=== PATIENT | female | born 1930 | race Caucasian/White ===

== ENCOUNTER 2018-03-25 11:50 | Emergency (ER) | payer MEDICARE, BC ==
[~2018-03-25] VITALS: Ht 157.5 cm; Wt 58.9 kg
[~2018-03-25 11:50] MED LIST: ALPR-149 PO; ASPI-1053 PO; CARV3.122 PO; CITA-311 PO; FURO-150 PO; LEVO75TA7 PO; LOSA25TA96 PO; NITR0.4T48 SL; PANT-47 PO; ROSU10TA PO; TICA90TA PO
[2018-03-25 12:27] LABS: CLARITY,URINE CLOUDY (Clear); COLOR,URINE YELLOW (Yellow); GLUCOSE, URINE NEGATIVE (Neg); KETONES,URINE NEGATIVE (Neg); LEUKOCYTE ESTERASE ,URINE SMALL (Neg); NITRITES, URINE NEGATIVE (Neg); OCCULT BLOOD,URINE LARGE (Neg); PROTEIN,URINE 100 mg/dl (Neg)
[2018-03-25 12:29] LABS: UA COLLECTION TYPE CLN CATCH MIDSTREAM
[2018-03-25 12:36] LABS: BACTERIA,URINE 4+ /HPF (Neg); MUCUS STRANDS NONE SEEN /LPF (Neg); SQUAMOUS EPITHELIAL CELL,UR FEW /LPF (FEW); TRANSITIONAL EPI CELLS,URINE FEW /HPF
[2018-03-25 12:37] LABS: AMORPHOUS URATES 1+
[2018-03-25] MEDS ORDERED: acetaminophen w/codeine (30MG) #3 tablet PO ONE (12:40)
[2018-03-25] MEDS ORDERED: CYCL-1 PO (13:20)
[2018-03-25] MEDS ORDERED: nitrofuran/nitrofuran macrocrysal 100 MG capsule PO ONE (13:20)
[2018-03-25] MEDS ORDERED: NITR100C6 PO (13:20)
[2018-03-25 13:46] VITALS: BP 119/54
== END 2018-03-25 13:47 | disposition home or self-care (01) ==
LOC: ER 11:50
DX: N39.0 Urinary tract infection, site not specified (principal); M54.2 Cervicalgia; R51 Headache; I50.9 Heart failure, unspecified; E78.00 Pure hypercholesterolemia, unspecified; Z88.1 Allergy status to other antibiotic agents; Z79.82 Long term (current) use of aspirin
CPT/HCPCS: 72040; 81001; 87077; 87088; 87186; 99285

== ENCOUNTER 2018-03-26 19:55 | Inpatient (IN) | payer MEDICARE, BC ==
[~2018-03-26] VITALS: Ht 157.5 cm; Wt 54.5 kg
[~2018-03-26 19:55] MED LIST changes: +CYCL-1 PO; +NITR100C6 PO
[2018-03-26 20:28] LABS: BASOPHILS % (AUTO) 0.1 % (0-1); EOSINOPHILS # (AUTO) 0.2 X10'3 (0-0.9); EOSINOPHILS % (AUTO) 1.2 % (0-6); HEMATOCRIT 28.1 % (35.0-45.0); HEMOGLOBIN 9.6 g/dl (12.0-16.0); LYMPHOCYTES # (AUTO) 0.3 X10'3 (1.1-4.8); LYMPHOCYTES % (AUTO) 1.7 % (21-51); MEAN CORPUSCULAR HEMOGLOBIN 29.8 PG (27.0-31.0); MEAN CORPUSCULAR HGB CONC 34.3 % (33.0-36.5); MEAN CORPUSCULAR VOLUME 86.8 FL (78-98); MEAN PLATELET VOLUME 6.8 FL (7.4-10.4); MONOCYTES # (AUTO) 0.8 X10'3 (0-0.9); MONOCYTES % (AUTO) 4.9 % (2-12); NEUTROPHILS # (AUTO) 14.9 X10'3 (1.8-7.7); NEUTROPHILS % (AUTO) 92.1 % (42-75); PLATELET COUNT 255 X10'3 (140-440); RED BLOOD COUNT 3.23 X10'6 (4.20-5.60); RED CELL DISTRIBUTION WIDTH 14.9 % (11.5-14.5); WHITE BLOOD COUNT 16.2 X10'3 (4.5-11.0)
[2018-03-26 20:40] LABS: PARTIAL THROMBOPLASTIN TIME 35 SECONDS (22-32); PROTHROMBIN TIME 10.7 SECONDS (9.0-12.0)
[2018-03-26 20:43] LABS: ALANINE AMINOTRANSFERASE 92 U/L (12-78); ALBUMIN 2.3 G/DL (3.4-5.0); ALBUMIN/GLOBULIN RATIO 0.5 (1.1-1.5); ALKALINE PHOSPHATASE 165 IU/L (46-116); ANION GAP 6 (8-16); ASPARTATE AMINO TRANSFERASE 146 U/L (10-37); BILIRUBIN,TOTAL 0.3 MG/DL (0.1-1.0); BLOOD UREA NITROGEN 19 MG/DL (7-18); BUN/CREATININE RATIO 20.2 (6.6-38.0); CALCIUM 8.6 MG/DL (8.5-10.1); CHLORIDE 90 MMOL/L (99-107); CREATININE 0.94 MG/DL (0.40-0.90); GLUCOSE 142 MG/DL (70-104); POTASSIUM 4.5 MMOL/L (3.5-5.1); SODIUM 121 MMOL/L (135-145); TOTAL CARBON DIOXIDE 25.2 MMOL/L (24-32); TOTAL PROTEIN 6.7 G/DL (6.4-8.2); eGFR 56 ML/MIN
[2018-03-26 21:10] LABS: PLATELET ESTIMATE NORMAL; TOTAL CELLS COUNTED 100
[2018-03-26] MEDS ORDERED: normal saline 1000ML IV soln IV ONE (21:40)
[2018-03-26] MEDS ORDERED: CefTRIAXone 2gm/D5W 50ml 50 ML IV ONE (21:40)
[2018-03-26] MEDS ORDERED: mag hydrox/Alum hydrox/simeth 30ml oral suspension PO PRN (22:55)
[2018-03-26] MEDS ORDERED: magnesium hydroxide 30ml (MOM) UD suspension PO PRN (22:55)
[2018-03-26] MEDS ORDERED: ondansetron/PF 4mg/2ml inj IV PRN (22:55)
[2018-03-26] MEDS ORDERED: nitroGLYCERIN 0.4mg SUBLingual tab SL PRN (23:00)
[2018-03-26 23:30] VITALS: BP 130/50
[2018-03-26] MEDS: normal saline 1000ml 1,000 ML IV SCH (23:36)
[2018-03-26] MEDS: acetaminophen 325mg tablet PO PRN (23:57)
[2018-03-27 01:47] LABS: CLARITY,URINE SLIGHTLY CLOUDY (Clear); COLOR,URINE AMBER (Yellow); GLUCOSE, URINE NEGATIVE (Neg); KETONES,URINE NEGATIVE (Neg); LEUKOCYTE ESTERASE ,URINE SMALL (Neg); NITRITES, URINE POSITIVE (Neg); OCCULT BLOOD,URINE LARGE (Neg); PROTEIN,URINE 100 mg/dl (Neg)
[2018-03-27 01:50] LABS: UA COLLECTION TYPE CLN CATCH MIDSTREAM
[2018-03-27 02:28] LABS: AMORPHOUS URATES 2+; MUCUS STRANDS MANY /LPF (Neg); SQUAMOUS EPITHELIAL CELL,UR FEW /LPF (FEW)
[2018-03-27 02:30] LABS: BACTERIA,URINE 2+ /HPF (Neg)
[2018-03-27 05:29] LABS: ALANINE AMINOTRANSFERASE 99 U/L (12-78); ALBUMIN 1.9 G/DL (3.4-5.0); ALBUMIN/GLOBULIN RATIO 0.5 (1.1-1.5); ALKALINE PHOSPHATASE 156 IU/L (46-116); ANION GAP 6 (8-16); ASPARTATE AMINO TRANSFERASE 143 U/L (10-37); BILIRUBIN,TOTAL 0.2 MG/DL (0.1-1.0); BLOOD UREA NITROGEN 17 MG/DL (7-18); BUN/CREATININE RATIO 18.7 (6.6-38.0); CALCIUM 8.3 MG/DL (8.5-10.1); CHLORIDE 91 MMOL/L (99-107); CREATININE 0.91 MG/DL (0.40-0.90); GLUCOSE 118 MG/DL (70-104); POTASSIUM 4.1 MMOL/L (3.5-5.1); SODIUM 122 MMOL/L (135-145); TOTAL CARBON DIOXIDE 25.4 MMOL/L (24-32); TOTAL PROTEIN 5.9 G/DL (6.4-8.2); eGFR 59 ML/MIN
[2018-03-27 06:00] LABS: BASOPHILS % (AUTO) 0 % (0-1); EOSINOPHILS # (AUTO) 0.3 X10'3 (0-0.9); HEMATOCRIT 25.6 % (35.0-45.0); HEMOGLOBIN 8.9 g/dl (12.0-16.0); LYMPHOCYTES # (AUTO) 0.3 X10'3 (1.1-4.8); LYMPHOCYTES % (AUTO) 2.5 % (21-51); MEAN CORPUSCULAR HEMOGLOBIN 30.2 PG (27.0-31.0); MEAN CORPUSCULAR HGB CONC 34.6 % (33.0-36.5); MEAN CORPUSCULAR VOLUME 87.3 FL (78-98); MEAN PLATELET VOLUME 7.6 FL (7.4-10.4); MONOCYTES # (AUTO) 0.7 X10'3 (0-0.9); MONOCYTES % (AUTO) 5.1 % (2-12); NEUTROPHILS % (AUTO) 90.4 % (42-75); PLATELET COUNT 232 X10'3 (140-440); RED BLOOD COUNT 2.94 X10'6 (4.20-5.60); RED CELL DISTRIBUTION WIDTH 14.9 % (11.5-14.5); WHITE BLOOD COUNT 13.3 X10'3 (4.5-11.0)
[2018-03-27] MEDS: levoTHYROXINE 75mcg tablet PO SCH (07:40)
[2018-03-27] MEDS: carVEDilol 3.125mg tablet PO SCH ×2 (07:48→19:31)
[2018-03-27] MEDS: pantoprazole 40mg Tablet.DR PO SCH (07:48)
[2018-03-27] MEDS: CefTRIAXone/D5W-Rocephin 1gm 50 ML IV SCH (07:48)
[2018-03-27] MEDS: CITALOpram 10mg tablet PO SCH (07:48)
[2018-03-27] MEDS: aspirin 81mg tab.chew PO SCH (07:49)
[2018-03-27] MEDS: losartan 25mg tablet PO SCH (07:49)
[2018-03-27] MEDS: atorvastatin 20mg tablet PO SCH (07:49)
[2018-03-27] MEDS: heparin, porcine 5000 units/ml vial SQ SCH ×2 (07:50→21:34)
[2018-03-27] MEDS: ticagrelor 90mg tablet PO SCH ×2 (08:00→19:42)
[2018-03-27 08:16] VITALS: BP 108/49
[2018-03-27] MEDS: HYDROcodone/acetaminophen 5mg/325mg tablet PO PRN ×2 (08:53→19:31)
[2018-03-27 09:16] LABS: TOTAL CELLS COUNTED 100
[2018-03-27 09:17] LABS: PLATELET ESTIMATE NORMAL
[2018-03-27 11:57] VITALS: BP 98/31
[2018-03-27 20:00] VITALS: BP 142/65
[2018-03-27] MEDS: ALPRAZolam 0.5mg tablet PO SCH (21:34)
[2018-03-28] VITALS: BP 105/54
[2018-03-28 05:10] LABS: BASOPHILS # (AUTO) 0.1 X10'3 (0-0.2); BASOPHILS % (AUTO) 0.4 % (0-1); EOSINOPHILS # (AUTO) 0.4 X10'3 (0-0.9); EOSINOPHILS % (AUTO) 3.6 % (0-6); HEMATOCRIT 26.9 % (35.0-45.0); HEMOGLOBIN 9.2 g/dl (12.0-16.0); LYMPHOCYTES # (AUTO) 0.4 X10'3 (1.1-4.8); LYMPHOCYTES % (AUTO) 3.8 % (21-51); MEAN CORPUSCULAR HEMOGLOBIN 29.7 PG (27.0-31.0); MEAN CORPUSCULAR HGB CONC 34.2 % (33.0-36.5); MEAN PLATELET VOLUME 7.4 FL (7.4-10.4); MONOCYTES # (AUTO) 0.4 X10'3 (0-0.9); MONOCYTES % (AUTO) 3.2 % (2-12); PLATELET COUNT 263 X10'3 (140-440); RED CELL DISTRIBUTION WIDTH 15.1 % (11.5-14.5); WHITE BLOOD COUNT 11.2 X10'3 (4.5-11.0)
[2018-03-28 05:17] LABS: ALANINE AMINOTRANSFERASE 144 U/L (12-78); ALBUMIN 1.8 G/DL (3.4-5.0); ALBUMIN/GLOBULIN RATIO 0.5 (1.1-1.5); ALKALINE PHOSPHATASE 323 IU/L (46-116); ANION GAP 6 (8-16); ASPARTATE AMINO TRANSFERASE 204 U/L (10-37); BILIRUBIN,TOTAL 0.2 MG/DL (0.1-1.0); BLOOD UREA NITROGEN 17 MG/DL (7-18); BUN/CREATININE RATIO 18.5 (6.6-38.0); CALCIUM 8.2 MG/DL (8.5-10.1); CHLORIDE 95 MMOL/L (99-107); CREATININE 0.92 MG/DL (0.40-0.90); GLUCOSE 120 MG/DL (70-104); POTASSIUM 4.5 MMOL/L (3.5-5.1); SODIUM 128 MMOL/L (135-145); TOTAL CARBON DIOXIDE 26.7 MMOL/L (24-32); TOTAL PROTEIN 5.8 G/DL (6.4-8.2); eGFR 58 ML/MIN
[2018-03-28 07:00] VITALS: BP 101/44
[2018-03-28] MEDS: ticagrelor 90mg tablet PO SCH ×2 (07:10→19:36)
[2018-03-28] MEDS: carVEDilol 3.125mg tablet PO SCH ×2 (07:30→17:26)
[2018-03-28] MEDS: losartan 25mg tablet PO SCH (08:00)
[2018-03-28] MEDS: levoTHYROXINE 75mcg tablet PO SCH (08:53)
[2018-03-28] MEDS: pantoprazole 40mg Tablet.DR PO SCH (08:53)
[2018-03-28] MEDS: aspirin 81mg tab.chew PO SCH (08:53)
[2018-03-28] MEDS: CITALOpram 10mg tablet PO SCH (08:53)
[2018-03-28] MEDS: atorvastatin 20mg tablet PO SCH (08:53)
[2018-03-28] MEDS: CefTRIAXone/D5W-Rocephin 1gm 50 ML IV SCH (08:54)
[2018-03-28] MEDS: heparin, porcine 5000 units/ml vial SQ SCH ×2 (08:54→19:40)
[2018-03-28 11:35] VITALS: BP 97/35
[2018-03-28] MEDS: normal saline 1000ml 1,000 ML IV SCH (17:20)
[2018-03-28 17:25] VITALS: BP 123/52
[2018-03-28] MEDS: lactobacillus rhamnosus 10,000 MMU CELLS/CAPSULE PO SCH (19:40)
[2018-03-28 20:00] VITALS: BP 140/56
[2018-03-28] MEDS: ALPRAZolam 0.5mg tablet PO SCH (21:14)
[2018-03-28] MEDS: acetaminophen 325mg tablet PO PRN (23:44)
[2018-03-29] VITALS: BP 133/52
[2018-03-29 05:52] LABS: BASOPHILS % (AUTO) 0.1 % (0-1); EOSINOPHILS # (AUTO) 0.3 X10'3 (0-0.9); EOSINOPHILS % (AUTO) 3.8 % (0-6); HEMATOCRIT 27.5 % (35.0-45.0); HEMOGLOBIN 9.5 g/dl (12.0-16.0); LYMPHOCYTES # (AUTO) 0.4 X10'3 (1.1-4.8); LYMPHOCYTES % (AUTO) 5.2 % (21-51); MEAN CORPUSCULAR HEMOGLOBIN 29.8 PG (27.0-31.0); MEAN CORPUSCULAR HGB CONC 34.6 % (33.0-36.5); MEAN CORPUSCULAR VOLUME 86.3 FL (78-98); MEAN PLATELET VOLUME 7.5 FL (7.4-10.4); MONOCYTES # (AUTO) 0.6 X10'3 (0-0.9); MONOCYTES % (AUTO) 6.8 % (2-12); NEUTROPHILS # (AUTO) 7.2 X10'3 (1.8-7.7); NEUTROPHILS % (AUTO) 84.1 % (42-75); PLATELET COUNT 320 X10'3 (140-440); RED BLOOD COUNT 3.19 X10'6 (4.20-5.60); WHITE BLOOD COUNT 8.6 X10'3 (4.5-11.0)
[2018-03-29 06:24] LABS: ALANINE AMINOTRANSFERASE 115 U/L (12-78); ALBUMIN 1.8 G/DL (3.4-5.0); ALBUMIN/GLOBULIN RATIO 0.4 (1.1-1.5); ALKALINE PHOSPHATASE 440 IU/L (46-116); ANION GAP 7 (8-16); ASPARTATE AMINO TRANSFERASE 126 U/L (10-37); BILIRUBIN,TOTAL 0.2 MG/DL (0.1-1.0); BLOOD UREA NITROGEN 13 MG/DL (7-18); BUN/CREATININE RATIO 16.5 (6.6-38.0); CALCIUM 8.5 MG/DL (8.5-10.1); CHLORIDE 98 MMOL/L (99-107); CREATININE 0.79 MG/DL (0.40-0.90); GLUCOSE 107 MG/DL (70-104); POTASSIUM 3.9 MMOL/L (3.5-5.1); SODIUM 132 MMOL/L (135-145); TOTAL CARBON DIOXIDE 26.8 MMOL/L (24-32); eGFR 69 ML/MIN
[2018-03-29 06:55] LABS: BANDS% (MANUAL) 9 % (0-10); EOSINOPHILS % (MANUAL) 2 % (0-6); LYMPHOCYTES % (MANUAL) 5 % (21-51); NEUTROPHILS % (MANUAL) 78 % (42-75); TOTAL CELLS COUNTED 100
[2018-03-29 06:56] LABS: MONOCYTES % (MANUAL) 6 % (2-12); PLATELET ESTIMATE NORMAL
[2018-03-29 07:37] VITALS: BP 126/40
[2018-03-29] MEDS: ticagrelor 90mg tablet PO SCH (08:00)
[2018-03-29] MEDS: CefTRIAXone/D5W-Rocephin 1gm 50 ML IV SCH (08:21)
[2018-03-29] MEDS: lactobacillus rhamnosus 10,000 MMU CELLS/CAPSULE PO SCH ×2 (08:21→20:01)
[2018-03-29] MEDS: CITALOpram 10mg tablet PO SCH (08:22)
[2018-03-29] MEDS: levoTHYROXINE 75mcg tablet PO SCH (08:22)
[2018-03-29] MEDS: aspirin 81mg tab.chew PO SCH (08:22)
[2018-03-29] MEDS: atorvastatin 20mg tablet PO SCH (08:22)
[2018-03-29] MEDS: carVEDilol 3.125mg tablet PO SCH ×3 (08:23→18:49)
[2018-03-29] MEDS: pantoprazole 40mg Tablet.DR PO SCH (08:23)
[2018-03-29] MEDS: heparin, porcine 5000 units/ml vial SQ SCH ×2 (08:25→20:03)
[2018-03-29] MEDS: losartan 25mg tablet PO SCH (08:36)
[2018-03-29 11:40] VITALS: BP 114/47
[2018-03-29] MEDS ORDERED: salt irrigation nasal spray 45 ML SPRAY NS PRN (12:00)
[2018-03-29] MEDS: levoFLOXACIN 500mg tablet PO SCH (13:33)
[2018-03-29] MEDS: fluticasone nasal spray 16GM bottle NS SCH (14:31)
[2018-03-29 20:00] VITALS: BP 140/55
[2018-03-29] MEDS: HYDROcodone/acetaminophen 5mg/325mg tablet PO PRN (20:02)
[2018-03-29] MEDS: ALPRAZolam 0.5mg tablet PO SCH (22:51)
[2018-03-30 00:02] VITALS: BP 120/63
[2018-03-30 06:05] LABS: BASOPHILS % (AUTO) 0.3 % (0-1); EOSINOPHILS # (AUTO) 0.3 X10'3 (0-0.9); EOSINOPHILS % (AUTO) 3.8 % (0-6); HEMATOCRIT 26.8 % (35.0-45.0); HEMOGLOBIN 9.2 g/dl (12.0-16.0); LYMPHOCYTES # (AUTO) 0.6 X10'3 (1.1-4.8); LYMPHOCYTES % (AUTO) 8.2 % (21-51); MEAN CORPUSCULAR HEMOGLOBIN 29.7 PG (27.0-31.0); MEAN CORPUSCULAR HGB CONC 34.4 % (33.0-36.5); MEAN CORPUSCULAR VOLUME 86.3 FL (78-98); MEAN PLATELET VOLUME 7.4 FL (7.4-10.4); MONOCYTES # (AUTO) 0.3 X10'3 (0-0.9); MONOCYTES % (AUTO) 4.1 % (2-12); NEUTROPHILS # (AUTO) 6.4 X10'3 (1.8-7.7); NEUTROPHILS % (AUTO) 83.6 % (42-75); PLATELET COUNT 391 X10'3 (140-440); RED CELL DISTRIBUTION WIDTH 15.5 % (11.5-14.5); WHITE BLOOD COUNT 7.7 X10'3 (4.5-11.0)
[2018-03-30 06:29] LABS: ALANINE AMINOTRANSFERASE 100 U/L (12-78); ALBUMIN 1.7 G/DL (3.4-5.0); ALBUMIN/GLOBULIN RATIO 0.4 (1.1-1.5); ALKALINE PHOSPHATASE 450 IU/L (46-116); ANION GAP 9 (8-16); ASPARTATE AMINO TRANSFERASE 106 U/L (10-37); BILIRUBIN,TOTAL 0.2 MG/DL (0.1-1.0); BLOOD UREA NITROGEN 12 MG/DL (7-18); BUN/CREATININE RATIO 18.2 (6.6-38.0); CALCIUM 8.3 MG/DL (8.5-10.1); CHLORIDE 98 MMOL/L (99-107); CREATININE 0.66 MG/DL (0.40-0.90); GLUCOSE 104 MG/DL (70-104); POTASSIUM 3.7 MMOL/L (3.5-5.1); SODIUM 133 MMOL/L (135-145); TOTAL CARBON DIOXIDE 26.3 MMOL/L (24-32); TOTAL PROTEIN 5.8 G/DL (6.4-8.2); eGFR 85 ML/MIN
[2018-03-30 06:48] VITALS: BP 127/51
[2018-03-30] MEDS: heparin, porcine 5000 units/ml vial SQ SCH (07:21)
[2018-03-30] MEDS: pantoprazole 40mg Tablet.DR PO SCH (07:21)
[2018-03-30] MEDS: levoTHYROXINE 75mcg tablet PO SCH (07:22)
[2018-03-30] MEDS: losartan 25mg tablet PO SCH (07:22)
[2018-03-30] MEDS: carVEDilol 3.125mg tablet PO SCH (07:22)
[2018-03-30] MEDS: atorvastatin 20mg tablet PO SCH (07:22)
[2018-03-30] MEDS: aspirin 81mg tab.chew PO SCH (07:22)
[2018-03-30] MEDS: lactobacillus rhamnosus 10,000 MMU CELLS/CAPSULE PO SCH (07:22)
[2018-03-30] MEDS: CITALOpram 10mg tablet PO SCH (07:22)
[2018-03-30] MEDS: fluticasone nasal spray 16GM bottle NS SCH (07:23)
[2018-03-30] MEDS ORDERED: LEVO500T89 PO (11:03)
[2018-03-30] MEDS: levoFLOXACIN 500mg tablet PO SCH (11:05)
== END 2018-03-30 13:50 | DRG 872 ==
LOC: ER 19:57 → ED HOLD 22:53 → SUR 3N 23:45
PROVIDERS: ADMIT Internal Medicine; ATTEND Family Medicine
DX: A41.9 Sepsis, unspecified organism (principal); N39.0 Urinary tract infection, site not specified; E87.1 Hypo-osmolality and hyponatremia; N17.9 Acute kidney failure, unspecified; E44.0 Moderate protein-calorie malnutrition; E78.00 Pure hypercholesterolemia, unspecified; F41.9 Anxiety disorder, unspecified; B96.1 Klebsiella pneumoniae [K. pneumoniae] as the cause of diseases classified elsewhere; I25.10 Atherosclerotic heart disease of native coronary artery without angina pectoris; B96.20 Unspecified Escherichia coli [E. coli] as the cause of diseases classified elsewhere; B96.5 Pseudomonas (aeruginosa) (mallei) (pseudomallei) as the cause of diseases classified elsewhere; I50.9 Heart failure, unspecified; I67.9 Cerebrovascular disease, unspecified; R74.8 Abnormal levels of other serum enzymes; Z88.1 Allergy status to other antibiotic agents; Z79.899 Other long term (current) drug therapy; Z79.82 Long term (current) use of aspirin; Z79.890 Hormone replacement therapy; Z68.22 Body mass index [BMI] 22.0-22.9, adult
CPT/HCPCS: 36415; 71045; 76705; 80053; 81001; 83605; 84145; 84443; 84484; 85025; 85610; 85730; 87040; 87070; 87077; 87088; 87186; 93005; 96365; 97116; 97124; 97161; 99285; A6212; J0696; J1644; J7030